=== PATIENT | male | born 1955 | race Two or more races ===

== ENCOUNTER 2019-10-12 23:01 | Emergency (ER) | payer OTHER ==
[~2019-10-12] VITALS: Ht 175.3 cm; Wt 77.1 kg
[2019-10-12] MEDS ORDERED: ATIVAN1 M1 (23:06)
== END 2019-10-13 04:16 | disposition home or self-care (01) ==
LOC: ER 23:01
DX: F10.20 Alcohol dependence, uncomplicated (principal)

== ENCOUNTER 2019-10-13 23:05 | Emergency (ER) | payer OTHER ==
[~2019-10-13] VITALS: Ht 175.3 cm; Wt 85.3 kg
[~2019-10-13 23:05] MED LIST: ATIVAN1 M1
== END 2019-10-14 00:47 | disposition left against medical advice (07) ==
LOC: ER 23:05
DX: Z53.20 Procedure and treatment not carried out because of patient's decision for unspecified reasons (principal)